=== PATIENT | female | born 1995 | race Caucasian/White ===

== ENCOUNTER 2021-05-03 11:39 | Observation (INO) ==
[2021-05-03] MEDS ORDERED: EPHEDrine 50 MG/ML VIAL IVP PRN (12:58)
[2021-05-03] MEDS ORDERED: Epidural Premix (fent/bupiv) 110 ML EP SCH (13:00)
[2021-05-03] MEDS ORDERED: Ringers Solution, Lactated 1,000 ML ONE (13:06)
[2021-05-03] MEDS ORDERED: Ringers Solution, Lactated 1,000 ML IVC ONE (13:17)
== END 2021-05-03 15:50 | disposition home or self-care (01) ==
LOC: 1NENULAB
PROVIDERS: ADMIT Obstetrics & Gynecology; ATTEND Obstetrics & Gynecology

== ENCOUNTER → 2021-05-08 20:30 | Observation (INO) ==
[~2021-05-08 20:30] MED LIST: Acetaminophen 325 MG TABLET PO ONE; EPHEDrine 50 MG/ML VIAL IVP PRN; Epidural Premix (fent/bupiv) 110 ML EP SCH
== END | disposition home or self-care (01) ==
LOC: 1NENULAB
PROVIDERS: ADMIT Advanced Practice Midwife; ATTEND Advanced Practice Midwife

== ENCOUNTER 2021-05-10 12:45 | Inpatient (IN) ==
[2021-05-10] MEDS ORDERED: Ondansetron 4 MG/2 ML VIAL IVP PRN (13:29)
[2021-05-10] MEDS ORDERED: *HR* Nalbuphine 10 MG/ML AMPUL IV PRN (13:29)
[2021-05-10] MEDS ORDERED: Lidocaine 1% 20 ML MDV INFILT PRN (13:29)
[2021-05-10] MEDS ORDERED: Famotidine 20 MG/2 ML VIAL IVP PRN (13:29)
[2021-05-10] MEDS ORDERED: Azithromycin 500 MG in 0.9 % Sodium Chloride 250 ML IVPB PRN (13:29)
[2021-05-10] MEDS ORDERED: Naloxone 0.4 MG/ML INJ IVP PRN (13:29)
[2021-05-10] MEDS ORDERED: Metoclopramide 10 MG/2 ML VIAL IVP PRN (13:29)
[2021-05-10] MEDS ORDERED: Ringers Solution, Lactated 1,000 ML IVC SCH (13:30)
[2021-05-10] MEDS ORDERED: Oxytocin 20 units/ LR 1000 mL 20 UNIT/1,000 ML BAG IVC SCH ×2 (14:20→21:07)
[2021-05-10 14:24] LABS: Basophils % 0.2 %; Eosinophils # 0.1 K/mcL (0.0-0.6); Eosinophils % 0.9 %; Hematocrit 35.3 % (35.3-44.9); Hemoglobin 11.5 g/dL (11.5-15.4); Immature Granulocytes % 0.4 % (0-4); Lymphocytes # 1.9 K/mcL (0.6-4.6); Lymphocytes % 18.1 %; Mean Corpuscular HGB Conc 32.6 g/dL (31.6-35.5); Mean Corpuscular Hemoglobin 25.3 pg (28.0-33.3); Mean Corpuscular Volume 77.6 fL (83.0-100.0); Mean Platelet Volume 10.2 fL (9.4-12.4); Monocytes # 0.8 K/mcL (0.0-1.3); Monocytes % 7.2 %; Neutrophils # 7.7 K/mcL (1.6-8.9); Platelet Count 328 K/mcL (140-400); Red Blood Count 4.55 M/mcL (3.82-4.97); Red Cell Distribution Width 14.6 % (11.5-14.5); Segmented Neutrophils % 73.2 %; White Blood Count 10.6 K/mcL (4.3-11.1)
[2021-05-10 14:33] LABS: Alanine Aminotransferase 11 Units/L (7-52); Aspartate Amino Transferase 12 Units/L (13-39); BUN/Creatinine Ratio 24 (6-26); Blood Urea Nitrogen 12 mg/dL (6-20); Lactate Dehydrogenase 154 Units/L (140-271); Uric Acid 4.9 mg/dL (2.3-7.6); eGFR For African Americans > 60 (> 60); eGFR For Non-African Americans > 60 (> 60)
[2021-05-10 14:37] LABS: Amphetamine Screen,Urine Negative ng/mL (Cutoff=1000); Barbiturate Screen,Urine Negative ng/mL (Cutoff=200); Benzodiazepines Screen,Urine Negative ng/mL (Cutoff=200); Cannabinoid Screen,Urine Negative ng/mL (Cutoff = 50); Cocaine Screen,Urine Negative ng/mL (Cutoff= 300); Creatinine,Urine 156 mg/dL; Opiate Screen,Urine Negative ng/mL (Cutoff=300); Phencyclidine Screen,Urine Negative ng/mL (Cutoff=25)
[2021-05-10 15:06] LABS: Rubella IgG Antibody POSITIVE (POSITIVE); Varicella Zoster IgG Antibody Positive
[2021-05-10 15:10] LABS: Hepatitis B Surface Antigen Nonreactive (Nonreactive)
[2021-05-10] MEDS ORDERED: *HR* FentaNYL (PF) 100 MCG/2 ML VIAL ONE (17:40)
[2021-05-10] MEDS ORDERED: Ropivacaine/PF 0.2% 20 ML VIAL ONE (17:40)
[2021-05-10] MEDS ORDERED: Epidural Premix (fent/bupiv) 110 ML EP ONE (17:41)
[2021-05-10] MEDS ORDERED: EPHEDrine 50 MG/ML VIAL IVP PRN (20:45)
[2021-05-10] MEDS ORDERED: Ropivacaine/PF 0.2% 20 ML VIAL EP ONE (20:45)
[2021-05-10] MEDS ORDERED: Epidural Premix (fent/bupiv) 110 ML EP SCH (20:45)
[2021-05-10] MEDS ORDERED: *HR* FentaNYL (PF) 100 MCG/2 ML VIAL EP ONE (20:45)
[2021-05-10] MEDS ORDERED: Oxytocin 20 units/ LR 1000 mL 20 UNIT/1,000 ML BAG IVC ONE (21:07)
[2021-05-10] MEDS ORDERED: Rho Immune Globulin 1,500 UNIT SYRINGE IM PRN (21:07)
[2021-05-10] MEDS ORDERED: Measles/Mumps/Rubella Vacc 0.5 ML VIAL SQ PRN (21:07)
[2021-05-10] MEDS ORDERED: Benzocaine/Menthol 56 GM AEROSOL SPRAY TP PRN (21:07)
[2021-05-11] MEDS: Ibuprofen 600 MG TABLET PO PRN ×2 (03:05→21:58)
[2021-05-11 06:17] LABS: Basophils % 0.3 %; Eosinophils # 0.1 K/mcL (0.0-0.6); Eosinophils % 0.9 %; Hematocrit 29.3 % (35.3-44.9); Hemoglobin 9.4 g/dL (11.5-15.4); Immature Granulocytes % 0.3 % (0-4); Lymphocytes % 25.6 %; Mean Corpuscular HGB Conc 32.1 g/dL (31.6-35.5); Mean Corpuscular Hemoglobin 25.1 pg (28.0-33.3); Mean Corpuscular Volume 78.3 fL (83.0-100.0); Mean Platelet Volume 10.1 fL (9.4-12.4); Monocytes # 0.7 K/mcL (0.0-1.3); Monocytes % 5.7 %; Neutrophils # 7.8 K/mcL (1.6-8.9); Platelet Count 266 K/mcL (140-400); Red Blood Count 3.74 M/mcL (3.82-4.97); Red Cell Distribution Width 14.6 % (11.5-14.5); Segmented Neutrophils % 67.2 %; White Blood Count 11.6 K/mcL (4.3-11.1)
[2021-05-11] MEDS: *HR* Enoxaparin 60 MG/0.6 ML SYRINGE SQ SCH ×2 (08:13→20:12)
[2021-05-11] MEDS ORDERED: Prenatal Vit/FA 1 EACH TABLET PO SCH (09:00)
[2021-05-11] MEDS: NIFEdipine XL (24 HR) 30 MG TAB.ER.24 PO SCH (10:12)
[2021-05-11] MEDS: Acetaminophen 325 MG TABLET PO PRN ×2 (12:39→18:27)
[2021-05-11] MEDS ORDERED: Acetaminophen/Butalbital/CaffeineTABLET PO PRN (19:04)
[2021-05-12 04:54] VITALS: BP 125/81
[2021-05-12] MEDS: NIFEdipine XL (24 HR) 30 MG TAB.ER.24 PO SCH (09:02)
[2021-05-12] MEDS: *HR* Enoxaparin 60 MG/0.6 ML SYRINGE SQ SCH (09:02)
== END 2021-05-12 12:15 | disposition home or self-care (01) | DRG 560 ==
LOC: 1NENULAB 12:45 → 1NENUOBS 21:10
PROVIDERS: ADMIT Obstetrics & Gynecology; ATTEND Obstetrics & Gynecology